=== PATIENT | female | born 1990 | race African-American/Black ===

== ENCOUNTER 2022-02-11 16:44 | Emergency (ER) | payer SELFPAY ==
[~2022-02-11] VITALS: Ht 152.4 cm; Wt 171.6 kg
--- NOTE | 2022-02-11 18:15 | PHYS DOC ---
General Adult EDM: Chief Complaint: SEXUALLY TRANSMITTED DISEASE HPI: HPI: Patient is a 31 year old female who presents with vaginal itching and white discharge for the last month, intermittent urinary burning with urination. She states she went to her doctor who gave her Diflucan but did not seem to help. History is a Lap-Band, yeast infection, tonsillectomy, obesity. She states that she was sexually active about a month ago when all this started. Denies abdominal pain, nausea, vomiting, diarrhea, fever, back pain, chest pain, shortness of air, numbness or tingling, focal weakness. Review of Systems: Review of Systems: Constitutional: Denies fever or chills. [] Eyes: Denies change in visual acuity. [] HENT: Denies nasal congestion or sore throat. [] Respiratory: Denies cough or shortness of breath. [] Cardiovascular: Denies chest pain or edema. [] GI: Denies abdominal pain, nausea, vomiting, bloody stools or diarrhea. [] : Denies dysuria. + White vaginal discharge. + Vaginal itching [] Musculoskeletal: Denies back pain or joint pain. [] Integument: Denies rash. [] Neurologic: Denies headache, focal weakness or sensory changes. [] Endocrine: Denies polyuria or polydipsia. [] Lymphatic: Denies swollen glands. [] Psychiatric: Denies depression or anxiety. [] Heart Score: C/O Chest Pain: No Physical Exam: PE: Constitutional: Well developed, well nourished, no acute distress, non-toxic appearance. [] HENT: Normocephalic, atraumatic, bilateral external ears normal, oropharynx moist, no oral exudates, nose normal. [] Eyes: PERRLA, EOMI, conjunctiva normal, no discharge. [] Neck: Normal range of motion, no tenderness, supple, no stridor. [] Cardiovascular:Heart rate regular rhythm, no murmur [] Lungs & Thorax: Bilateral breath sounds clear to auscultation [] Abdomen: Bowel sounds normal, soft, no tenderness, no masses, no pulsatile masses. [] Skin: Warm, dry, no erythema, no rash. [] Back: No tenderness, no CVA tenderness. [] Extremities: No tenderness, no cyanosis, no clubbing, ROM intact, no edema. [] Neurologic: Alert and oriented X 3, normal motor function, normal sensory function, no focal deficits noted. [] Psychologic: Affect normal, judgement normal, mood normal. [] Normal physical exam EKG: EKG: [] Radiology/Procedures: Radiology/Procedures: [] Course & Med Decision Making: Course & Med Decision Making Pertinent Labs and Imaging studies reviewed. (See chart for details) See HPI. Alert and oriented x4. Ambulatory steady gait. Skin pink warm dry. Morbidly obese. Abdomen soft and nontender. No CVA tenderness. Patient to self swab. Patient is positive for . Because of this I am going ahead and give her treatment for STD in ED today. Patient is positive for bacterial vaginosis. She will be treated with metronidazole. [] Dragon Disclaimer: Dragon Disclaimer: This electronic medical record was generated, in whole or in part, using a voice recognition dictation system. Departure Departure Impression: Primary Impression: Concern about sexually transmitted disease in female without diagnosis Additional Impressions: Positive test Bacterial vaginosis in Urinary symptom or sign Disposition: 01 HOME / SELF CARE / HOMELESS Condition: STABLE Referrals: NO PCP (PCP) CHARLOTTE MEDINA MD Patient Instructions: ABCs of , Sexually Transmitted Diseases- [facility] Additional Instructions: Follow-up with a MUSIC INSTRUCTOR as soon as possible. I have referred you to a MUSIC INSTRUCTOR. Plenty of fluids to stay hydrated. Start taking a vitamin daily. Scripts Nitrofurantoin Monohyd/M-Cryst (MACROBID 100 MG CAPSULE) 100 Mg Capsule 1 CAP PO BID for 7 Days, #14 CAP 0 Refills Prov: JT GARCIA DOT COMPLIANCE COORDINATOR 02/11/22 Metronidazole (METRONIDAZOLE) 500 Mg Tablet 1 TAB PO BID for 7 Days, #14 TAB 0 Refills Prov: JT GARCIA DOT COMPLIANCE COORDINATOR 02/11/22 JT GARCIA DOT COMPLIANCE COORDINATOR February 11, 2022 18:15
[2022-02-11] MEDS ORDERED: cefTRIAXone IM 500 MG VIAL. IM ONE (18:30)
[2022-02-11] MEDS ORDERED: AZITHROMYCIN 250 MG TABLET. PO ONE (18:30)
[2022-02-11] MEDS ORDERED: METR-34 PO (18:50)
[2022-02-11 19:02] LABS: BACTERIA,URINE FEW /HPF (0-FEW); RBC,URINE OCC /HPF (0-2); WBC,URINE OCC /HPF (0-4)
[2022-02-11] MEDS ORDERED: NITR100C62 PO (19:06)
[2022-02-11 19:10] VITALS: BP 135/90
== END 2022-02-11 19:12 | disposition home or self-care (01) ==
LOC: ER 16:44
DX: O23.591 Infection of other part of genital tract in pregnancy, first trimester (principal); B96.89 Other specified bacterial agents as the cause of diseases classified elsewhere; Z20.2 Contact with and (suspected) exposure to infections with a predominantly sexual mode of transmission; Z3A.00 Weeks of gestation of pregnancy not specified
CPT/HCPCS: 81001; 81025; 87491; 87591; 96372; 99284; J0696; Q0111; 99283